=== PATIENT | female | born 2000 | race Caucasian/White ===

== ENCOUNTER 2022-12-06 13:06 | Emergency (ER) | payer BC ==
--- NOTE | 2022-12-06 13:08 | ERPHSYRPT ---
- History of Present Illness Time Seen by Provider: 12/06/22 13:08 Historian: patient Exam Limitations: no limitations Physician History: This 22-year-old white female patient just completed her menstrual period and presents with left flank pain that radiates down into her groin and left lower quadrant area. She is allergic to penicillin and cefaclor. She has no nausea vomiting or diarrhea. She denies chest pain. Symptoms began earlier this morning Activities at Onset: none Abdominal Pain Onset Location: flank (Left) Pain Radiation: LLQ Severity of Pain-Max: mild Severity of Pain-Current: mild Modifying Factors: Improves With: nothing Associated Symptoms: denies symptoms Previous symptoms: no recent treatment Allergies/Adverse Reactions: amoxicillin Allergy (Verified 12/06/22 13:26) cefaclor [From Ceclor] Allergy (Verified 12/06/22 13:26) Rash Penicillins Allergy (Verified 12/06/22 13:26) Rash Home Medications: Omeprazole 20 MG [Prilosec 20 mg] 40 cap PO DAILY 06/11/15 [History] Ergocalciferol (Vitamin D2) [Vitamin D2] 1,250 mcg PO WEEKLY 12/06/22 [History] Escitalopram Oxalate [Lexapro] 20 mg PO DAILY 12/06/22 [History] Hydroxyzine HCl 25 mg [Atarax 25 mg] 25 mg PO HS PRN 12/06/22 [History] Tirzepatide [Mounjaro] 12.5 mg SQ WEEKLY 12/06/22 [History] Trazodone HCl 50 mg [Desyrel 50 mg] 50 mg PO DAILY 12/06/22 [History] Travel Risk - International Travel Have you traveled outside of the country in past 3 weeks: No - Coronavirus Screening Are you exhibiting any of the following symptoms?: No Close contact with a COVID-19 positive Pt in past 14-21 Days: No - Review of Systems Constitutional: No Symptoms Eyes: No Symptoms Ears, Nose, & Throat: No Symptoms Respiratory: No Symptoms Cardiac: No Symptoms Abdominal/Gastrointestinal: Abdominal Pain (Left lower quadrant) Genitourinary Symptoms: Hematuria, Flank Pain (Left) Musculoskeletal: No Symptoms Skin: No Symptoms Neurological: No Symptoms Psychological: No Symptoms Endocrine: No Symptoms Hematologic/Lymphatic: No Symptoms Immunological/Allergic: No Symptoms All Other Systems: Reviewed and Negative - Past Medical History Pertinent Past Medical History: Yes Neurological History: Migraines ENT History: No Pertinent History Cardiac History: No Pertinent History Respiratory History: No Pertinent History Endocrine Medical History: No Pertinent History Musculoskeletal History: No Pertinent History GI Medical History: No Pertinent History History: No Pertinent History Psycho-Social History: No Pertinent History Female Reproductive Disorders: No Pertinent History - Past Surgical History Past Surgical History: Yes Other Surgical History: closed reduction of right arm - Social History Smoking Status: Never smoker Exposure to second hand smoke: No Drug Use: none - Nursing Vital Signs Nursing Vital Signs: Initial Vital Signs Temperature 97.9 F 12/06/22 13:13 Pulse Rate 94 H 12/06/22 13:13 Blood Pressure 115/81 12/06/22 13:13 O2 Sat by Pulse Oximetry 97 12/06/22 13:13 Pain Scale Pain Intensity 2 - Physical Exam General Appearance: no apparent distress, alert, anxiety Eye Exam: PERRL/EOMI, eyes nml inspection Ears, Nose, Throat Exam: normal ENT inspection, TM abnormal (L) Neck Exam: normal inspection, non-tender, supple, full range of motion Respiratory Exam: normal breath sounds, lungs clear, airway intact, No chest tenderness, No respiratory distress Cardiovascular Exam: regular rate/rhythm, normal heart sounds, normal peripheral pulses Gastrointestinal/Abdomen Exam: soft, normal bowel sounds, tenderness (Mild left lower quadrant) Pelvic Exam: not done Rectal Exam: deferred Back Exam: normal inspection, normal range of motion, CVA tenderness (Left), No vertebral tenderness Extremity Exam: normal inspection, normal range of motion, pelvis stable Neurologic Exam: alert, oriented x 3, cooperative, cupola patcher helper II-XII nml as tested, normal mood/affect, nml cerebellar function, nml station & gait, sensation nml Skin Exam: normal color, warm, dry Lymphatic Exam: No adenopathy SpO2 Interpretation: normal O2 Delivery: Room Air - Course Nursing assessment & vital signs reviewed: Yes Ordered Tests: Active Orders 24 hr Category Date Time Status CULTURE,URINE Stat Lab 12/06/22 14:01 Received HCG QUALITATIVE, URINE Stat Lab 12/06/22 14:01 Completed UA W/RFX UR CULTURE Stat Lab 12/06/22 14:01 Completed Lab/Rad Data: Laboratory Results 12/06/22 12/06/22 Range/Units 14:01 14:01 Urine Color [place] A (Yellow) Urine Appearance Cloudy A (Clear) Urine pH 5.5 (4.6-8.0) Ur Specific Scalf 1.025 (1.005-1.030) Urine Protein 100 A (Negative) Urine Glucose (UA) Negative (Negative) mg/dL Urine Ketones Trace A (Negative) Urine Blood Large A (Negative) Urine Nitrite Negative (Negative) Urine Bilirubin Negative (Negative) Urine Urobilinogen 1.0 A (0.2) mg/dL Ur Leukocyte Esterase Small A (Negative) U Hyaline Cast (Auto) 3-5 A (0-2) /LPF Urine Microscopic RBC >100 A (0-5) /HPF Urine Microscopic WBC 11-20 A (0-5) /HPF Ur Epithelial Cells Few (None Seen) /HPF Calcium Oxalate Crystal 3-5 A (None Seen) /HPF Urine Bacteria Moderate A (None Seen) /HPF Urine Culture Reflexed YES (NO) Urine HCG, Qual NEGATIVE (NEGATIVE) - Progress Progress: unchanged Progress Note: 12/06/22 14:34 This patient's medical issue is 1 of low complexity. The level of complexity in the work-up performed is based on review of the patient's past medical history, review the patient's medication list, review of the patient's drug allergy list, history of present illness, physical findings on examination. The work-up in this patient includes a urine test and a urinalysis. Review of t he results show the patient has a least a moderate urinary tract infection. We will provide her with Levaquin oral medication here in the emergency department followed by an outpatient prescription of Cipro and Pyridium. Counseled pt/family regarding: lab results, diagnosis, need for follow-up Medical Desision Making - Diagnostic Testing Diagnostic test were ordered, analyzed, and reviewed by me: Yes - Risk of complications The pt has a mod risk of morbidity or mortality based on: Need for prescription drug management - Departure Departure Disposition: Home Clinical Impression: Urinary tract infection Condition: Stable Critical Care Time: No Referrals: MONTSE PACE NP [Primary Care Provider] - Follow up/PCP as directed Additional Instructions: Plenty of fluids. Take your antibiotics as prescribed. May use Tylenol and ibuprofen for pain and fever control. Follow-up with your primary care provided on an outpatient basis for further evaluation management. Prescriptions: Ciprofloxacin [Cipro 500 MG] 500 mg PO BID #14 tablet Phenazopyridine HCl 200 mg [Pyridium 200 mg] 200 mg PO TID #6 tablet
[2022-12-06 13:27] VITALS: BP 115/81; PULSE 94; TEMP 97.9; O2SAT 97
[2022-12-06 14:09] LABS: HCG URINE TEST NEGATIVE (NEGATIVE)
[2022-12-06 14:24] LABS: Appearance Cloudy (Clear); Bacteria Moderate /HPF (None Seen); Bilirubin Negative (Negative); Blood Large (Negative); Epithelial Cells Few /HPF (None Seen); Glucose, Urine Negative (Negative); Ketones Trace (Negative); Leukocyte Esterase Small (Negative); Nitrite Negative (Negative); Ph 5.5 (4.6-8.0); Protein,Urine Dip 100 (Negative); RBC >100 /HPF (0-5); Specific Gravity 1.025 (1.005-1.030)
[2022-12-06 14:25] LABS: ADD URINE CULTURE? YES (NO)
[2022-12-06] MEDS ORDERED: Levofloxacin 500 MG Tablet PO ONE (14:39)
[2022-12-06] MEDS ORDERED: Levofloxacin 500 MG Tablet ONE (14:45)
== END 2022-12-06 14:50 | disposition home or self-care (01) ==
LOC: ED 13:06
DX: N39.0 Urinary tract infection, site not specified (principal); R10.32 Left lower quadrant pain; Z79.85 Long-term (current) use of injectable non-insulin antidiabetic drugs; Z79.899 Other long term (current) drug therapy
CPT/HCPCS: 81001; 81025; 87086; 99282; A9270-GY